=== PATIENT | male | born 1980 | race Caucasian/White ===

== ENCOUNTER 2017-09-17 09:23 | Emergency (ER) | payer BC ==
[2017-09-17 10:05] VITALS: BP 120/75
--- NOTE | 2017-09-17 10:21 | UC ---
Dizzy HPI HPI Summary: Started spinning yesterday, much worse since last night. Fevers, sinus pain and earache. Congestion and cough. - History Of Current Complaint Chief Complaint: UCDizziness Stated Complaint: DIZZINESS Time Seen by Provider: 09/17/17 10:10 Hx Obtained From: Patient Onset/Duration: Sudden Onset, Lasting Days - 2, Worse Since - yesterday. Timing: Constant Severity Initially: Mild Severity Currently: Moderate Character: Head Spinning Aggravating Factor(s): Position Change, Change In Head Position Alleviating Factor(s): Rest Associated Signs And Symptoms: Positive: Nausea, Vomiting. Negative: Diaphoresis, Tinnitus, Chest Pain, SOB - Allergies/Home Medications Allergies/Adverse Reactions: Allergies Allergy/AdvReac Type Severity Reaction Status Date / Time No Known Allergies Allergy Verified 09/17/17 09:54 Home Medications: Home Medications Chlorpheniramine-Phenylephrine [Sammie-Tripp Plus Cold 2-7.8-325 mg] 1 tab PO PRN 09/17/17 [History] Esomeprazole Magnesium [Nexium] 40 mg PO DAILY 09/17/17 [History Confirmed 09/17] PMH/Surg Hx/FS Hx/Imm Hx Previously Healthy: Yes - Surgical History Surgical History: Yes Surgery Procedure, Year, and Place: LEFT KNEE ARTHOSCOPY - Family History Known Family History: Positive: Cardiac Disease Negative: Hypertension, Diabetes - Social History Occupation: Employed Full-time Lives: With Family Alcohol Use: Rare Substance Use Type: None Smoking Status (MU): Heavy Every Day Tobacco Smoker Type: Cigarettes Amount Used/How Often: 1 PPD Household Exposure Type: Cigarettes Review of Systems Eyes: Photophobia ENT: Nasal Discharge, Sinus Congestion, Sinus Pain/Tenderness Respiratory: Cough Is Patient Immunocompromised?: No All Other Systems Reviewed And Are Negative: Yes Physical Exam Triage Information Reviewed: Yes Appearance: No Pain Distress, Well-Nourished, Ill-Appearing Vital Signs: Initial Vital Signs Temp 97.7 F 09/17/17 09:58 Pulse 58 09/17/17 09:58 Resp 18 09/17/17 09:58 BP 120/75 09/17/17 09:58 Pulse Ox 98 09/17/17 09:58 Vital Signs Reviewed: Yes Eyes: Positive: Conjunctiva Inflamed ENT: Positive: Pharynx normal, Nasal congestion, TMs normal Neck exam: Normal Respiratory: Positive: Lungs clear, Wheezing - ? wheeze with cough Cardiovascular Exam: Normal Abdominal Exam: Normal Neurological: Positive: Other: - Vertigo symptoms with head movement Psychological Exam: Normal Skin Exam: Normal Dizzy Course/Dx - Differential Dx/Diagnosis Differential Diagnosis/HQI/PQRI: Labyrinthitis, Meniere's Disease, Other - Sinusitis Provider Diagnoses: Acute URI. Labyrinthitis. Acute sinusitis. Acute bronchospasm Discharge - Discharge Plan Condition: Stable Disposition: HOME Prescriptions: Amoxicillin PO (*) [Amoxicillin 875 MG (*)] 875 mg PO BID #20 tab Meclizine HCl [Meclizine 25] 25 mg PO Q6HR PRN #60 tab PRN Reason: Vertigo predniSONE TAB* [Deltasone TAB*] 20 mg PO DAILY #18 tab Patient Education Materials: Vertigo (ED), Labyrinthitis (ED), Sinusitis (ED), Bronchospasm (ED), Meclizine (By mouth), Amoxicillin (By mouth), Prednisone (By mouth) Forms: *Work Release
[2017-09-17] MEDS ORDERED: Meclizine TAB* 12.5 MG PO ONE (10:24)
== END 2017-09-17 10:38 | disposition home or self-care (01) ==
LOC: UCCORT 09:23
DX: J01.90 Acute sinusitis, unspecified (principal); H83.09 Labyrinthitis, unspecified ear; J98.01 Acute bronchospasm; R11.2 Nausea with vomiting, unspecified; F17.210 Nicotine dependence, cigarettes, uncomplicated
CPT/HCPCS: 99202; A9270-GY; G0463

== ENCOUNTER 2018-03-04 12:12 | Emergency (ER) | payer BC ==
[2018-03-04 13:58] VITALS: BP 143/109
--- NOTE | 2018-03-04 14:57 | UC ---
Back Pain HPI - HPI Summary HPI Summary: C/O mid thoracic left sided lateral back pain over the last week. Worse with certain movement. - History of Current Complaint Chief Complaint: UCBackPain Stated Complaint: BACK PAIN Time Seen by Provider: 03/04/18 14:51 Hx Obtained From: Patient Onset/Duration: Sudden Onset, Lasting Weeks - 1, Still Present Timing: Constant Severity Initially: Moderate Severity Currently: Moderate Pain Intensity: 5 Back Pain: Is Discrete @ - left middle lower thoracic Character: Sharp - with movement, Dull, Aching Aggravating Factor(s): Movement, Lifting Alleviating Factor(s): Rest Associated Signs And Symptoms: Positive: Negative Related History: Similar Episode Dx As - back strain. - Risk Factors AAA Risk Factors: Smoking TAD Risk Factors: Smoking - Allergies/Home Medications Allergies/Adverse Reactions: Allergies Allergy/AdvReac Type Severity Reaction Status Date / Time No Known Allergies Allergy Verified 03/04/18 13:58 Home Medications: Home Medications Ibuprofen TAB* [Motrin TAB* 800 MG] 1,600 mg PO Q6H PRN 03/04/18 [History Confirmed 03/04/18] PMH/Surg Hx/FS Hx/Imm Hx Previously Healthy: Yes - Surgical History Surgical History: Yes Surgery Procedure, Year, and Place: LEFT KNEE ARTHOSCOPY - Family History Known Family History: Positive: Cardiac Disease, Diabetes Negative: Hypertension - Social History Occupation: Employed Full-time Lives: With Family Alcohol Use: Weekly Substance Use Type: None Smoking Status (MU): Heavy Every Day Tobacco Smoker Type: Cigarettes Amount Used/How Often: 1 PPD Length of Time of Smoking/Using Tobacco: since age 15 Have You Smoked in the Last Year: Yes Household Exposure Type: Cigarettes Cessation Counseling: Patient Advised to Stop Review of Systems Musculoskeletal: Myalgia Is Patient Immunocompromised?: No All Other Systems Reviewed And Are Negative: Yes Physical Exam Triage Information Reviewed: Yes Appearance: Well-Appearing, No Pain Distress - at rest., Well-Nourished, Pain Distress - with movement. Vital Signs: Initial Vital Signs Temp 97.4 F 03/04/18 13:49 Pulse 95 03/04/18 13:49 Resp 16 03/04/18 13:49 BP 143/109 03/04/18 13:49 Pulse Ox 99 03/04/18 13:49 Vital Signs Reviewed: Yes Eyes: Positive: Conjunctiva Clear Neck exam: Normal Respiratory Exam: Normal Cardiovascular Exam: Normal Musculoskeletal: Positive: Other: - Tenderness in the left thoracic musculature just inferior to the scapula with trigger point. Neurological Exam: Normal Psychological Exam: Normal Skin Exam: Normal Back Pain Course/Dx - Differential Dx/Diagnosis Differential Diagnosis/HQI/PQRI: Herniated Disc, Strain, Sprain Provider Diagnoses: left sided thoracic back pain. Discharge - Sign-Out/Discharge Documenting (check all that apply): Discharge/Admit/Transfer - Discharge Plan Condition: Stable Disposition: HOME Prescriptions: Cyclobenzaprine TAB* [Flexeril 10 MG TAB*] 10 mg PO BEDTIME PRN #20 tab PRN Reason: Pain - Back Patient Education Materials: Muscle Spasm (ED) Referrals: Perez JOSEPH,Sammy James [Primary Care Provider] - Additional Instructions: 1. Push fluids. 2. Try trigger point massage with heat and Icyhot. Direct pressure over the point of maximal pain. 3. Magnesium 400 or 500 mg once or twice a day. 4. STOP SMOKING Smoking Cessation Tricks. 1. Cut down by 1 cigarette per day every 2-3 days. Write the number of smokes for that day on the calendar. 2. Identify triggers to smoking: after meals, on the phone, in the car, with coffee, on breaks at work, etc. 3. Formulate a plan with a behavior to replace the smoking. Fireballs in the car , doodle pad on the phone, flavored creamer for the coffee, go for a walk after a meal or on break at work. 4. For stress smokes do deep breathing relaxation. Breath deep in through the nose hold the breath in for a few seconds then breath out slowly through the mouth. - Billing Disposition and Condition Condition: STABLE Disposition: HOME
== END 2018-03-04 15:14 | disposition home or self-care (01) ==
LOC: UCCORT 12:12
DX: M54.6 Pain in thoracic spine (principal); F17.210 Nicotine dependence, cigarettes, uncomplicated
CPT/HCPCS: 99212; G0463

== ENCOUNTER 2018-04-12 13:49 | Emergency (ER) | payer BC ==
[2018-04-12 14:16] VITALS: BP 158/108
--- NOTE | 2018-04-12 14:44 | UC ---
Knee Pain HPI - HPI Summary HPI Summary: Pt c/o left knee pain and swelling that is chronic and has worsened over the last 2 days. denies injury or prior trauma. - History of Current Complaint Chief Complaint: UCLowerExtremity Stated Complaint: LFT KNEE PAIN Time Seen by Provider: 04/12/18 14:29 Hx Obtained From: Patient Onset/Duration: Gradual Onset, Lasting Days, Still Present, Worse Since - osnet Severity Initially: Mild Severity Currently: Moderate Pain Intensity: 5 Character: Dull, Aching, Stiffness Aggravating Factor(s): Movement, Weight Bearing, Prolonged Standing, Stairs Alleviating Factor(s): Rest, Cold Associated Signs And Symptoms: Positive: Swelling Able to Bear Weight: Yes - Risk Factors Septic Arthritis Risk Factor: Negative Gout Risk Factor: Male, Obesity - Allergies/Home Medications Allergies/Adverse Reactions: Allergies Allergy/AdvReac Type Severity Reaction Status Date / Time No Known Allergies Allergy Verified 03/04/18 13:58 Home Medications: Home Medications Naproxen Sodium [Aleve] 200 mg PO Q8HR 04/12/18 [History Confirmed 04/12/18] PMH/Surg Hx/FS Hx/Imm Hx Previously Healthy: Yes - Surgical History Surgical History: Yes Surgery Procedure, Year, and Place: LEFT KNEE ARTHOSCOPY. ANGIOGRAPHY - Family History Known Family History: Positive: Cardiac Disease, Diabetes Negative: Hypertension - Social History Occupation: Employed Full-time Lives: With Family Alcohol Use: Weekly Substance Use Type: None Smoking Status (MU): Heavy Every Day Tobacco Smoker Type: Cigarettes Amount Used/How Often: 1 PPD Length of Time of Smoking/Using Tobacco: since age 15 Have You Smoked in the Last Year: Yes Household Exposure Type: Cigarettes Review of Systems Constitutional: Negative Skin: Negative Eyes: Negative ENT: Negative Respiratory: Negative Cardiovascular: Negative Gastrointestinal: Negative Genitourinary: Negative Motor: Decreased ROM - pain with ROM Neurovascular: Negative Musculoskeletal: Arthralgia - left knee, Decreased ROM - pain with ROM, left knee, Edema - left knee,, Myalgia - left knee Neurological: Negative Psychological: Negative Is Patient Immunocompromised?: No All Other Systems Reviewed And Are Negative: Yes Physical Exam Triage Information Reviewed: Yes Appearance: Well-Appearing, Obese Vital Signs: Initial Vital Signs Temp 98.6 F 04/12/18 14:07 Pulse 91 04/12/18 14:07 Resp 17 04/12/18 14:07 BP 158/108 04/12/18 14:07 Pulse Ox 99 04/12/18 14:07 Vital Signs Reviewed: Yes Eye Exam: Normal ENT: Positive: Hearing grossly normal Neck exam: Normal Respiratory Exam: Normal Cardiovascular Exam: Normal Musculoskeletal Exam: Other Musculoskeletal: Positive: ROM Limited @ - pain with ROm left knee, Edema @ - left knee, anterori , knee cap Neurological Exam: Normal Psychological Exam: Normal Skin Exam: Normal Diagnostics - Radiology No standard instances Radiology Interpretation Completed By: Radiologist - FINDINGS: There is a small joint effusion present. The bones are normal alignment. No fracture is seen. Joint spaces appear maintained. IMPRESSION: SMALL JOINT EFFUSION. Knee Pain Course/Dx - Differential Dx/Diagnosis Differential Diagnosis/HQI/PQRI: Bursitis, Internal Derangement Of Knee, Sprain , Strain Provider Diagnoses: left knee joint effusion. left knee pain Discharge - Sign-Out/Discharge Documenting (check all that apply): Discharge/Admit/Transfer - Discharge Plan Condition: Stable Disposition: HOME Patient Education Materials: Swollen Knee Joint (ED), Knee Pain (ED), Hypertension (ED) Forms: *Work Release Referrals: [facility] [Outside] Chris Ferrara MD [Medical Doctor] - As Soon As Possible Perez JOSEPH,Sammy James [Primary Care Provider] - Additional Instructions: Please note that your blood pressure is elevated at today's visit. Please follow up with your PCP as soon as possible regarding your elevated blood pressure at todays visit. - Billing Disposition and Condition Condition: STABLE Disposition: Home
--- NOTE | 2018-04-12 15:07 | RAD ---
INDICATION: Left knee pain. TECHNIQUE: 4 views of the left knee were obtained. FINDINGS: There is a small joint effusion present. The bones are normal alignment. No fracture is seen. Joint spaces appear maintained. IMPRESSION: SMALL JOINT EFFUSION.
== END 2018-04-12 15:18 | disposition home or self-care (01) ==
LOC: UCCORT 13:49
DX: M25.562 Pain in left knee (principal); M25.462 Effusion, left knee; E66.9 Obesity, unspecified; M10.9 Gout, unspecified; F17.210 Nicotine dependence, cigarettes, uncomplicated; Z79.899 Other long term (current) drug therapy; Z98.890 Other specified postprocedural states
CPT/HCPCS: 99211; G0463